=== PATIENT | female | born 1945 | race Hispanic/Latino ===

== ENCOUNTER 2017-05-14 09:25 | Outpatient (CLI) | payer MEDICARE ==
--- NOTE | 2017-05-14 15:40 | Magnetic Resonance Report ---
MRI RIGHT SHOULDER WITHOUT AND WITH CONTRAST: 05/14/17 CLINICAL: Right shoulder pain and history of right breast cancer. TECHNIQUE: Coronal T1, coronal T2, coronal proton density fat saturation, sagittal proton density fat saturation and axial gradient echo T* sequences without contrast followed by sagittal and coronal post contrast T1 fat-sat sequences on a 1.5 Colleen magnet. FINDINGS: A type I acromion. Severe acromioclavicular joint osteoarthritis with hypertrophy at the joint space, T2 hyperintensity in the joint space and enhancement of the joint. A small Hill-Sachs lesion of the posterolateral humerus and moderate osteoarthritis of the glenohumeral joint with subchondral cyst formation. Physiologic fluid in the joint space. There is impingement of the supraspinatus tendon not enlarged acromioclavicular joint. Partial-thickness undersurface tear of the distal supraspinatus tendon. No retraction of the tendon. The rest of the rotator cuff is intact. Intact glenoid labrum and long head of the biceps tendon. The muscles have normal signal and demonstrate no abnormal enhancement. Normal marrow signal with no suspicious bone lesion. IMPRESSION: 1. Partial-thickness undersurface tear of the distal supraspinatus tendon 2. Acromioclavicular joint arthritis with impingement of the supraspinatus tendon. 3. The glenohumeral joint osteoarthritis. 4. A Hill-Sachs lesion of the greater tuberosity of the humerus suggests previous shoulder dislocation.
== END 2017-05-14 09:26 | disposition home or self-care (01) ==
LOC: SPVIMAG 09:25
PROVIDERS: ATTEND Internal Medicine Hematology & Oncology
DX: M75.101 Unspecified rotator cuff tear or rupture of right shoulder, not specified as traumatic (principal); M19.011 Primary osteoarthritis, right shoulder
CPT/HCPCS: 73223; A9577